=== PATIENT | female | born 1955 | race Caucasian/White ===

== ENCOUNTER → 2020-08-27 | Outpatient (CLI) | payer MEDICARE, BC ==
--- NOTE | 2020-08-27 14:54 | KCIC ---
Examination: MRI of the left knee without contrast HISTORY: History of fall, pain, swelling COMPARISON: None TECHNIQUE: Multiplanar, multisequence MR imaging of the left knee was performed without contrast. FINDINGS: The anterior cruciate ligament, posterior cruciate ligament appears intact. The medial meniscus appea rs intact. There is horizontal increased signal identified in the lateral meniscus likely tear of the lateral meniscus involving the anterior horn, body and posterior horn of the lateral meniscus with a cystic structure extending posteriorly from the posterior horn the lateral meniscus measuring 1.2 cm likely meniscal cyst. The extensor mechanism appears intact. There is increased T2 signal identified in the proximal portion of the medial collateral ligament particularly at its attachment likely full -thickness tear of the proximal attachment of the medial collateral ligament. Some of the fibers are folded deep to the medial collateral ligament, best visualized on series 9 image 14.. The lateral collateral ligamentous complex including the fibular collateral ligament, biceps femoris and popliteus tendon appears intact. The medial, lateral retinaculum appears intact. There is mild increased T2 signal acetabulum identifi ed in the medial femoral condyle. Mild superficial fraying of cartilage identified in the medial, lat eral, patellofemoral compartments. Moderate joint space loss identified in the medial, lateral, wright lofemoral compartments. IMPRESSION: 1. Full-thickness tear of the proximal portion of the medial collateral ligament at its femoral savage chment. 2. Tear of the lateral meniscus involving the anterior horn, body and posterior horn with a 1.2 cm c ystic structure extending posteriorly from the posterior horn the lateral meniscus likely meniscal cy st. 3. Moderate knee joint effusion. Moderate tricompartmental degenerative changes. Electronically signed by: Dinesh Flanagan MD (08/27/2020 2:52 PM) [id number]
== END ==
LOC: KCIC MRI 12:40
PROVIDERS: ATTEND Family Medicine
DX: M25.462 Effusion, left knee (principal)
CPT/HCPCS: 73721